=== PATIENT | female | born 1985 | race American Indian/Alaskan Native ===

== ENCOUNTER 2018-05-17 19:18 | Emergency (ER) | payer SELFPAY ==
[2018-05-17 19:18] VITALS: BMI 23.6
[2018-05-17 19:50] VITALS: O2SAT 100
[2018-05-17] MEDS ORDERED: Sodium Chloride 0.9% 1,000 ML IV STA (20:32)
[2018-05-17 21:08] LABS: VENOUS BLOOD GAS BASE EXCESS 2.8 mmol/L (0.0-2.0); VENOUS BLOOD GAS PO2 34 mm/Hg (30-55); VENOUS BLOOD PH 7.36 (7.32-7.43)
[2018-05-17 21:09] LABS: BASO # 0.01 K/mm3 (0.0-2.0); BASO % 0.3 % (0.0-3.0); EOS % 0.8 % (1.5-5.0); LYMPH # 0.7 (1.2-3.4); LYMPH % 19.1 % (22.0-35.0); MEAN CELL VOLUME 90.3 fl (80.0-105.0); MEAN CORPUSCULAR HEMOGLOBIN 29.2 pg (25.0-35.0); MEAN CORPUSCULAR HGB CONC 32.3 g/dl (31.0-37.0); MEAN PLATELET VOLUME 10.1 fl (7.0-11.0); MONO # 0.2 (0.1-0.6); MONO % 4.2 % (1.0-6.0); RBC 4.45 10^6/uL (3.5-6.1); WHITE BLOOD COUNT 3.8 10^3/uL (4.5-11.0)
--- NOTE | 2018-05-17 21:10 | ED PDOC ---
Arrival/HPI <Samy Sanchez - Last Filed: 05/17/18 22:02> - General Historian: Patient - History of Present Illness Narrative History of Present Illness (Text): 05/17/18 21:07 33-year-old female with no pmh, and to the emergency room complaining of vomiting, diarrhea, abdominal pain, fevers, chills and feeling lightheaded which started today. Patient states that yesterday she was already starting to feel weak and tired. She also adds that last night she [place] with her family however she is only 1 who is ill today. Of note, patient had a recent URI, however has no cough now. Otherwise patient reports no other sick contacts, no recent travel, no chest pain, no SOB, has no h/o abdominal surgeries. <Julia Lewis PA-C - Last Filed: 05/18/18 00:59> - General Chief Complaint: Flu-like Symptoms Time Seen by Provider: 05/17/18 19:39 Past Medical History - Infectious Disease Hx of Infectious Diseases: None - Tetanus Immunization Tetanus Immunization: Unknown - Past Medical History Past Medical History: No Previous - Cardiac Hx Cardiac Disorders: No - Pulmonary Hx Respiratory Disorders: Yes Hx Bronchitis: Yes - Neurological Hx Neurological Disorder: No - HEENT Hx HEENT Disorder: No - Renal Hx Renal Disorder: No - Endocrine/Metabolic Hx Endocrine Disorders: No - Hematological/Oncological Hx Blood Disorders: No - Integumentary Hx Dermatological Disorder: No - Musculoskeletal/Rheumatological Hx Musculoskeletal Disorders: No - Gastrointestinal Hx Gastrointestinal Disorders: No - Genitourinary/Gynecological Hx Genitourinary Disorders: No - Psychiatric Hx Psychophysiologic Disorder: No Hx Substance Use: No - Past Surgical History Past Surgical History: Non-Contributing - Surgical History Hx Eye Surgery: Yes Other/Comment: laser eye surgery - Anesthesia Hx Anesthesia Reactions: No Hx Malignant Hyperthermia: No - Suicidal Assessment Feels Threatened In Home Enviroment: No <Julia Lewis PA-C - Last Filed: 05/18/18 00:59> Family/Social History Family/Social History: No Known Family HX Smoking Status: Light Smoker < 10 Cigarettes Daily Hx Alcohol Use: No Hx Substance Use: No Hx Substance Use Treatment: No <Julia Lewis PA-C - Last Filed: 05/18/18 00:59> Allergies/Home Meds <Samy Sanchez - Last Filed: 05/17/18 22:02> <Julia Lewis PA-C - Last Filed: 05/18/18 00:59> Allergies/Adverse Reactions: Allergies No Known Allergies Allergy (Verified 05/17/18 19:46) Review of Systems - Review of Systems Constitutional: Fatigue, Fevers ENT: Rhinorrhea (+h/o recent URI). absent: Sore Throat, Sinus Congestion Respiratory: Cough (+h/o recent URI). absent: SOB Cardiovascular: absent: Chest Pain, Palpitations Gastrointestinal: Abdominal Pain, Diarrhea, Nausea, Vomiting Genitourinary Female: absent: Dysuria, Frequency, Hematuria Musculoskeletal: absent: Arthralgias, Back Pain, Neck Pain Skin: absent: Rash, Pruritis, Skin Lesions Neurological: absent: Headache, Dizziness <Julia Lewis PA-C - Last Filed: 05/18/18 00:59> Physical Exam Vital Signs Temp Pulse Resp BP Pulse Ox 05/17/18 21:18 81 18 131/84 100 05/17/18 20:38 101.3 F H 05/17/18 19:47 101.3 F H 103 H 17 138/90 100 <Samy Sanchez - Last Filed: 05/17/18 22:02> Vital Signs Temp Pulse Resp BP Pulse Ox 05/17/18 20:38 101.3 F H 05/17/18 19:47 101.3 F H 103 H 17 138/90 100 Temperature: Febrile Blood Pressure: Normal Pulse: Tachycardic Respiratory Rate: Normal Appearance: Positive for: Well-Appearing, Non-Toxic, Comfortable Pain Distress: Mild Mental Status: Positive for: Alert and Oriented X 3 - Systems Exam Head: Present: Atraumatic, Normocephalic Pupils: Present: PERRL Extroacular Muscles: Present: EOMI Conjunctiva: Present: Normal Ears: Present: Normal, NORMAL TM Mouth: Present: Dry Pharnyx: Present: ERYTHEMA. No: EXUDATE, TONSILS ENLARGED, Uvular Deviation, [place] Neck: Present: Normal Range of Motion. No: Meningeal Signs, Lymphadenopathy Respiratory/Chest: Present: Clear to Auscultation, Good Air Exchange. No: Respiratory Distress, Accessory Muscle Use Cardiovascular: Present: Regular Rate and Rhythm, Normal S1, S2. No: Murmurs Abdomen: Present: Tenderness (+moderate diffuse abdominal tenderness, greatest to the RLQ and LUQ ). No: Distention, Peritoneal Signs, Rebound, Guarding Back: Present: Normal Inspection. No: CVA Tenderness, Midline Tenderness Upper Extremity: Present: Normal Inspection. No: Cyanosis, Edema Lower Extremity: Present: Normal Inspection. No: Edema Neurological: Present: GCS=15, CN II-XII Intact, Speech Normal, Motor Func Grossly Intact, Normal Sensory Function Skin: Present: Warm, Dry, Normal Color. No: Rashes Psychiatric: Present: Alert, Oriented x 3, Normal Insight, Normal Concentration <Julia Lewis PA-C - Last Filed: 05/18/18 00:59> Medical Decision Making - Lab Interpretations Lab Results: pO2 34 mm/Hg (30-55) 05/17/18 20:55 VBG pH 7.36 (7.32-7.43) 05/17/18 20:55 VBG pCO2 52.0 (40-60) 05/17/18 20:55 VBG HCO3 29.4 mmol/l (21-28) H 05/17/18 20:55 VBG Total CO2 31.0 mmol.L (22-28) H 05/17/18 20:55 VBG O2 Sat (Calc) 72.3 % (40-65) H 05/17/18 20:55 VBG Base Excess 2.8 mmol/L (0.0-2.0) H 05/17/18 20:55 VBG Potassium 3.7 mmol/L (3.6-5.2) 05/17/18 20:55 Sodium 139.0 mmol/L (132-148) 05/17/18 20:55 Chloride 105.0 mmol/L (98-107) 05/17/18 20:55 Glucose 87 mg/dl (65-105) 05/17/18 20:55 Lactate 0.6 mmol/L (0.7-2.1) L 05/17/18 20:55 FiO2 21.0 % 05/17/18 20:55 Total Bilirubin 0.3 mg/dL (0.2-1.3) 05/17/18 20:55 AST 29 U/L (14-36) 05/17/18 20:55 ALT 18 U/L (7-56) 05/17/18 20:55 Alkaline Phosphatase 65 U/L (38-126) 05/17/18 20:55 Total Protein 7.5 g/dL (5.8-8.3) 05/17/18 20:55 Albumin 4.3 g/dL (3.0-4.8) 05/17/18 20:55 Globulin 3.2 gm/dL 05/17/18 20:55 Albumin/Globulin Ratio 1.3 (1.1-1.8) 05/17/18 20:55 Lipase 84 U/L (23-300) 05/17/18 20:55 Urine Color Yellow (YELLOW) 05/17/18 21:27 Urine Appearance Clear (CLEAR) 05/17/18 21:27 Urine pH 7.0 (4.7-8.0) 05/17/18 21:27 Ur Specific [place] 1.025 (1.005-1.035) 05/17/18 21:27 Urine Protein Trace mg/dL (<30 mg/dL) H 05/17/18 21:27 Urine Glucose (UA) Negative mg/dL (NEGATIVE) 05/17/18 21:27 Urine Ketones Negative mg/dL (NEGATIVE) 05/17/18 21:27 Urine Blood Negative (NEGATIVE) 05/17/18 21:27 Urine Nitrate Negative (NEGATIVE) 05/17/18 21:27 Urine Bilirubin Negative (NEGATIVE) 05/17/18 21:27 Urine Urobilinogen 0.2 E.U./dL (<1 E.U./dL) 05/17/18 21:27 Ur Leukocyte Esterase Negative [place]/uL (NEGATIVE) 05/17/18 21:27 Urine RBC 0 - 2 /hpf (0-2) 05/17/18 21:27 Urine WBC None /hpf (0-6) 05/17/18 21:27 Ur Epithelial Cells 0 - 2 /hpf (0-5) 05/17/18 21:27 Urine Other Mucus /hpf 05/17/18 21:27 - RAD Interpretation Radiology Orders: 05/17/18 20:32 CHEST PORTABLE [RAD] Stat - Medication Orders Current Medication Orders: Discontinued Medications Acetaminophen (Tylenol 325mg Tab) 975 mg PO STAT STA Stop: 05/17/18 20:05 Last Admin: 05/17/18 20:38 Dose: 975 mg MAR Pain/Vitals Document 05/17/18 20:38 KV (Rec: 05/17/18 20:39 KV [id number]) Vitals Temperature (97.6 F-99.6 F) 101.3 F Temperature Source Oral Famotidine (Pepcid) 20 mg IVP STAT STA Stop: 05/17/18 20:33 Last Admin: 05/17/18 21:00 Dose: 20 mg IVP Administration Document 05/17/18 21:00 KV (Rec: 05/17/18 21:05 KV [id number]) Charges for Administration # of IVP Administrations 1 Sodium Chloride (Sodium Chloride 0.9%) 1,000 mls @ 1,000 mls/hr IV .Q1H STA Stop: 05/17/18 21:31 Last Admin: 05/17/18 21:00 Dose: 1,000 mls/hr eMAR Start Stop Document 05/17/18 21:00 KV (Rec: 05/17/18 21:04 KV [id number]) Intravenous Solution Start Date 05/17/18 Start Time 21:00 Ketorolac Tromethamine (Toradol) 30 mg IVP STAT STA Stop: 05/17/18 20:33 Last Admin: 05/17/18 21:28 Dose: 30 mg MAR Pain Assessment Document 05/17/18 21:28 KV (Rec: 05/17/18 21:28 KV [id number]) Pain Reassessment Is this a pain reassessment? No IVP Administration Document 05/17/18 21:28 KV (Rec: 05/17/18 21:28 KV [id number]) Charges for Administration # of IVP Administrations 1 Ondansetron HCl (Zofran Inj) 4 mg IVP STAT STA Stop: 05/17/18 20:33 Last Admin: 05/17/18 21:00 Dose: 4 mg IVP Administration Document 05/17/18 21:00 KV (Rec: 05/17/18 21:05 KV [id number]) Charges for Administration # of IVP Administrations 1 Samy Armendariz - Last Filed: 05/17/18 22:02> ED Course and Treatment: 05/17/18 21:11 Plan : - IV - Labs - UA, urine cx - CXR - Tylenol / Pepcid / Zofran / Toradol - Reassess / disposition - Rapid flu / Rapid strep - VBG 05/17/18 22:22 CXR : NAD, as read by SHARLENE Rapid strep negative Rapid flu negative Urinalysis negative Labs reviewed and within normal limits, including normal WBC and normal lactate. On reevaluation, patient reports improvement of symptoms, denies any pain or nausea. On exam, patient remains awake alert and oriented 3 in no acute distress. T 99.7 P 87 R 16 BP 145/84 O2sat 100%RA. Abdomen soft and nontender, without guarding or rebound. Diagnostic results discussed with the patient in great detail. Diagnosis of gastroenteritis discussed with the patient. Advised to follow up with primary care physician or the clinic in 1-2 days without fail. Advised to take medication as prescribed. Return to the emergency room at any time for any new or worsening symptoms. Patient states she fully agrees with and understands discharge instructions. States that she agrees with the plan and disposition. Verbalized and repeated discharge instructions and plan. I have given the patient opportunity to ask any additional questions. - RAD Interpretation Radiology Orders: 05/17/18 20:32 CHEST PORTABLE [RAD] Stat - Medication Orders Current Medication Orders: Sodium Chloride (Sodium Chloride 0.9%) 1,000 mls @ 1,000 mls/hr IV .Q1H STA Stop: 05/17/18 21:31 Last Admin: 05/17/18 21:00 Dose: 1,000 mls/hr eMAR Start Stop Document 05/17/18 21:00 KV (Rec: 05/17/18 21:04 KV [id number]) Intravenous Solution Start Date 05/17/18 Start Time 21:00 Discontinued Medications Acetaminophen (Tylenol 325mg Tab) 975 mg PO STAT STA Stop: 05/17/18 20:05 Last Admin: 05/17/18 20:38 Dose: 975 mg MAR Pain/Vitals Document 05/17/18 20:38 KV (Rec: 05/17/18 20:39 KV [id number]) Vitals Temperature (97.6 F-99.6 F) 101.3 F Temperature Source Oral Famotidine (Pepcid) 20 mg IVP STAT STA Stop: 05/17/18 20:33 Last Admin: 05/17/18 21:00 Dose: 20 mg IVP Administration Document 05/17/18 21:00 KV (Rec: 05/17/18 21:05 KV [facility]) Charges for Administration # of IVP Administrations 1 Ketorolac Tromethamine (Toradol) 30 mg IVP STAT STA Stop: 05/17/18 20:33 Ondansetron HCl (Zofran Inj) 4 mg IVP STAT STA Stop: 05/17/18 20:33 Last Admin: 05/17/18 21:00 Dose: 4 mg IVP Administration Document 05/17/18 21:00 KV (Rec: 05/17/18 21:05 KV [facility]) Charges for Administration # of IVP Administrations 1 <Julia Lewis PA-C - Last Filed: 05/18/18 00:59> - PA / COURT ASSISTANT / Resident Statement RUTH has reviewed & agrees with the documentation as recorded. <Samy Sanchez - Last Filed: 05/17/18 22:02> - PA / COURT ASSISTANT / Resident Statement RUTH has reviewed & agrees with the documentation as recorded. <Julia Lewis PA-C - Last Filed: 05/18/18 00:59> Disposition/Present on Arrival <Samy Sanchez - Last Filed: 05/17/18 22:02> - Present on Arrival Any Indicators Present on Arrival: No History of DVT/PE: No History of Uncontrolled Diabetes: No Urinary Catheter: No History of Decub. Ulcer: No History Surgical Site Infection Following: None - Disposition Have Diagnosis and Disposition been Completed?: Yes Disposition Time: 22:30 Patient Plan: Discharge <Julia Lewis PA-C - Last Filed: 05/18/18 00:59> - Disposition Diagnosis: Fever Disposition: HOME/ ROUTINE Condition: STABLE Discharge Instructions (ExitCare): Viral Gastroenteritis, Adult (DC), Fever, Adult (DC) Additional Instructions: Thank you for letting us take care of you today. You were treated for fever, gastroenteritis. The emergency medical care you received today was directed at your acute symptoms. If you were prescribed any medication, please fill it and take as directed. It may take several days for your symptoms to resolve. Return to the Emergency Department if your symptoms worsen, do not improve, or if you have any other problems. Please contact your doctor in 2 days for re-evaluation and follow up / or call one of the physicians/clinics you have been referred to that are listed on the Patient Visit Information form that is included in your discharge packet. Bring any paperwork you were given at discharge with you along with any medications you are taking to your follow up visit. Our treatment cannot replace ongoing medical care by a primary care provider (PCP) outside of the emergency department. Thank you for allowing the [facility] team to be part of your care today. If you had an X-Ray : A Radiologist will review the ED reading if any change in treatment is needed we will contact you. Prescriptions: Dicyclomine [Bentyl] 20 mg PO QID PRN #20 tab PRN Reason: Other Ondansetron ODT [Zofran ODT] 4 mg PO DAILY PRN #20 odt PRN Reason: Nausea/Vomiting Referrals: [facility] [place] [facility] [place] - Follow up with primary FAMILY PROVIDER,NO [Primary Care Provider] - Follow up with primary Forms: Closely ([place]ian), WORK NOTE
[2018-05-17 21:16] LABS: ALB/GLOB RATIO 1.3 (1.1-1.8)
[2018-05-17 21:19] LABS: ALBUMIN 4.3 g/dL (3.0-4.8); ALT/SGPT 18 U/L (7-56); AST/SGOT 29 U/L (14-36); BLOOD UREA NITROGEN 10 mg/dL (7-21); GFR NON-AFRICAN AMERICAN > 60; LIPASE 84 U/L (23-300)
[2018-05-17 21:39] LABS: URINE BILIRUBIN NEGATIVE (NEGATIVE); URINE BLOOD NEGATIVE (NEGATIVE); URINE GLUCOSE (UA) NEGATIVE (NEGATIVE); URINE LEUKOCYTE ESTERASE NEGATIVE Leu/uL (NEGATIVE); URINE PROTEIN TRACE mg/dL (<30 mg/dL); URINE UROBILINOGEN 0.2 E.U./dL (<1 E.U./dL)
[2018-05-17 21:40] LABS: URINE APPEARANCE CLEAR (CLEAR); URINE COLOR YELLOW (YELLOW)
[2018-05-17 21:57] LABS: URINE EPITHELIAL CELLS 0 - 2 /hpf (0-5); URINE RBC 0 - 2 /hpf (0-2)
[2018-05-17 22:26] VITALS: BP 145/84; PULSE 87; RESP 16; TEMP 99.7
--- NOTE | 2018-05-18 09:03 | RAD ---
Date of service: 05/17/2018 HISTORY: fever COMPARISON: 11/18/2014 FINDINGS: LUNGS: No active pulmonary disease. PLEURA: No significant pleural effusion identified, no pneumothorax apparent. CARDIOVASCULAR: No aortic atherosclerotic calcification present. Normal cardiac size. No pulmonary vascular congestion. OSSEOUS STRUCTURES: No significant abnormalities. VISUALIZED UPPER ABDOMEN: Normal. OTHER FINDINGS: None. IMPRESSION: No active disease.
== END 2018-05-17 22:48 | disposition home or self-care (01) ==
LOC: ED 19:18
DX: R50.9 Fever, unspecified (principal)
CPT/HCPCS: 71045; 80053; 81001; 81025; 82803; 83690; 83735; 85025; 87040; 87070; 87086; 87430; 87804; 96374; 96375; 99284; J1885; J2405; J7030

== ENCOUNTER 2018-08-01 22:54 | Emergency (ER) | payer MEDICAID, OTHER ==
[2018-08-01 23:25] VITALS: BMI 23.2
[2018-08-01 23:28] VITALS: TEMP 98
--- NOTE | 2018-08-01 23:43 | ED PDOC ---
Arrival/HPI <Samy Sanchez - Last Filed: 08/02/18 01:19> - General Historian: Patient - History of Present Illness Narrative History of Present Illness (Text): 08/01/18 23:39 CC: dizziness, lightheadedness HPI: 33 year old female w/no significant PMH comes to ED for evaluation of dizziness and lightheadedness. Patient states that it began today while she was showering. Patient admits this dizziness has occurred in the past. Patient states that she attributes it to if she does not eat or drink water for a prolonged period of time. Patient states when she feels this way she begins to eat food and drink then goes to lie down to prevent a headache. Patient states she was recently here for similar complaints but did not take the medicine the doctor prescribed. Denies fevers, chills, chest pain, sob, n/v, constipation or diarrhea, and dyusria. <Gustavo Morales - Last Filed: 08/02/18 01:39> - General Chief Complaint: Dizziness/Lightheaded Time Seen by Provider: 08/01/18 22:58 Past Medical History - Provider Review Nursing Documentation Reviewed: Yes - Infectious Disease Hx of Infectious Diseases: None - Tetanus Immunization Tetanus Immunization: Unknown - Past Medical History Past Medical History: No Previous - Cardiac Hx Cardiac Disorders: No - Pulmonary Hx Respiratory Disorders: Yes Hx Bronchitis: Yes - Neurological Hx Neurological Disorder: Yes Hx Dizziness: Yes - HEENT Hx HEENT Disorder: No - Renal Hx Renal Disorder: No - Endocrine/Metabolic Hx Endocrine Disorders: No - Hematological/Oncological Hx Blood Disorders: No - Integumentary Hx Dermatological Disorder: No - Musculoskeletal/Rheumatological Hx Musculoskeletal Disorders: No - Gastrointestinal Hx Gastrointestinal Disorders: No - Genitourinary/Gynecological Hx Genitourinary Disorders: No - Psychiatric Hx Psychophysiologic Disorder: No Hx Substance Use: No - Past Surgical History Past Surgical History: Non-Contributing - Surgical History Hx Eye Surgery: Yes Other/Comment: laser eye surgery - Anesthesia Hx Anesthesia: No Hx Anesthesia Reactions: No Hx Malignant Hyperthermia: No - Suicidal Assessment Feels Threatened In Home Enviroment: No <Gustavo Morales - Last Filed: 08/02/18 01:39> Family/Social History Family/Social History: Diabetes, Hypertension Smoking Status: Light Smoker < 10 Cigarettes Daily Hx Alcohol Use: Yes Frequency of alcohol use: Socially Hx Substance Use: No Hx Substance Use Treatment: No <Gustavo Morales - Last Filed: 08/02/18 01:39> Allergies/Home Meds <Samy Sanchez - Last Filed: 08/02/18 01:19> <Gustavo Morales - Last Filed: 08/02/18 01:39> Allergies/Adverse Reactions: Allergies No Known Allergies Allergy (Verified 08/01/18 23:25) Review of Systems - Review of Systems Constitutional: Normal. absent: Fatigue, Weight Change, Fevers Eyes: Normal. absent: Vision Changes ENT: Normal Respiratory: Normal. absent: SOB, Cough, Sputum, Wheezing Cardiovascular: Normal. absent: Chest Pain, Palpitations, Edema Gastrointestinal: Normal. absent: Abdominal Pain, Stool Changes, Constipation, Diarrhea, Nausea, Vomiting, Appetite Changes Genitourinary Female: Normal. absent: Dysuria, Frequency, Hematuria Musculoskeletal: Normal. absent: Arthralgias, Back Pain Skin: Normal. absent: Rash, Pruritis Neurological: Dizziness. absent: Normal, Headache, Focal Weakness, Disequilibrium Endocrine: Normal. absent: Diaphoresis, Polyuria, Polydipsia Psychiatric: Normal. absent: Anxiety, Depression <Gustavo Morales - Last Filed: 08/02/18 01:39> Physical Exam Vital Signs Temp Pulse Resp BP Pulse Ox 08/01/18 23:27 98.0 F 82 18 153/98 H 98 <Samy Sanchez - Last Filed: 08/02/18 01:19> Vital Signs Reviewed: Yes Vital Signs Temp Pulse Resp BP Pulse Ox 08/01/18 23:27 98.0 F 82 18 153/98 H 98 Temperature: Afebrile Blood Pressure: Normal Pulse: Regular Respiratory Rate: Normal Appearance: Positive for: Well-Appearing, Non-Toxic, Comfortable Pain Distress: None Mental Status: Positive for: Alert and Oriented X 3 - Systems Exam Head: Present: Atraumatic, Normocephalic. No: Tenderness Pupils: Present: PERRL Extroacular Muscles: Present: EOMI Conjunctiva: Present: Normal Mouth: Present: Moist Mucous Membranes Neck: Present: Normal Range of Motion. No: Meningeal Signs, Paraspinal Tenderness Respiratory/Chest: Present: Clear to Auscultation, Good Air Exchange. No: Respiratory Distress, Accessory Muscle Use Cardiovascular: Present: Regular Rate and Rhythm, Normal S1, S2. No: Murmurs, Tachycardic Abdomen: Present: Normal Bowel Sounds. No: Tenderness, Distention, Peritoneal Signs Upper Extremity: Present: Normal Inspection. No: Cyanosis, Edema Lower Extremity: Present: Normal Inspection. No: Edema Neurological: Present: GCS=15, CN II-XII Intact, Speech Normal Skin: Present: Warm, Dry, Normal Color. No: Rashes Psychiatric: Present: Alert, Oriented x 3, Normal Insight, Normal Concentration <Gustavo Morales - Last Filed: 08/02/18 01:39> Medical Decision Making - RAD Interpretation Radiology Orders: 08/01/18 23:38 HEAD W/O CONTRAST [CT] Stat - Medication Orders Current Medication Orders: Discontinued Medications Meclizine HCl (Antivert) 25 mg PO STAT STA Stop: 08/01/18 23:39 Last Admin: 08/01/18 23:52 Dose: 25 mg <Samy Sanchez - Last Filed: 08/02/18 01:19> ED Course and Treatment: 08/01/18 23:45 Impression 33 year old female w/no significant PMH comes to ED for evaluation of dizziness and lightheadedness. Plan -CBC -CMP -Antivert -CT head w/o contrast Prior Visits All prior documentation and lab work reviewed prior to evaluation Progress Notes Patient laying in bed comfortably with partner. Complains of dizziness and light sensitivity Will reassess after imaging and blood work for disposition EKG shows NSR w/ sinus arrythmia 08/02/18 01:30 Lab work all reviewed and WNL CT head came back negative for acute pathology Re-evaluation Time: 01:30 Reassessment Condition: Re-examined, Improving,but remains with symptoms - Lab Interpretations Lab Results: 08/01/18 23:52 08/01/18 23:52 Lab Results 08/01/18 23:52: Sodium 142, Potassium 3.9, Chloride 103, Carbon Dioxide 29, Anion Gap 13, BUN 12, Creatinine 0.7, Est GFR ( Amer) > 60, Est GFR (Non- Af Amer) > 60, Random Glucose 104, Calcium 9.1, Total Bilirubin 0.3, AST 25, ALT 28, Alkaline Phosphatase 51, Total Protein 7.0, Albumin 4.1, Globulin 2.9, Albumin/Globulin Ratio 1.4 08/01/18 23:52: WBC 6.3 D, RBC 4.08, Hgb 11.8 L, Hct 36.5, MCV 89.5, MCH 28.9, MCHC 32.3, RDW 13.1, Plt Count 280, MPV 9.9, Neut % (Auto) 61.1, Lymph % (Auto) 31.8, [place] % (Auto) 5.8, Eos % (Auto) 1.1 L, Baso % (Auto) 0.2, Lymph # (Auto) 2.0, [place] # (Auto) 0.4, Eos # (Auto) 0.1, Baso # (Auto) 0.01, Absolute Neuts (auto) 3.82 I have reviewed the lab results: Yes Interpretation: Abnormal lab values (anemia) - RAD Interpretation Radiology Orders: 08/01/18 23:38 HEAD W/O CONTRAST [CT] Stat - EKG Interpretation EKG Interpretation (Text): 08/01/18 23:51 EKG shows A fib w/ PVC or aberrantly conducted complexes Rate controlled at 79 Interpreted by ED Physician: Yes Type: 12 lead EKG - Medication Orders Current Medication Orders: Discontinued Medications Meclizine HCl (Antivert) 25 mg PO STAT STA Stop: 08/01/18 23:39 <Gustavo Morales - Last Filed: 08/02/18 01:39> - PA / MOLDER MACHINE / Resident Statement / has reviewed & agrees with the documentation as recorded. / has examined the patient and agrees with the treatment plan. - Scribe Statement The provider has reviewed the documentation as recorded by the Scribe Patient Seen With Resident: In agreement with resident note which contains more details about the patient. Patient was seen and evaluated with resident. Came up with plan and treatment together. <Samy Sanchez - Last Filed: 08/02/18 01:19> Disposition/Present on Arrival <Samy Sanchez - Last Filed: 08/02/18 01:19> - Present on Arrival Any Indicators Present on Arrival: No History of DVT/PE: No History of Uncontrolled Diabetes: No Urinary Catheter: No History of Decub. Ulcer: No History Surgical Site Infection Following: None - Disposition Have Diagnosis and Disposition been Completed?: Yes Disposition Time: 01:38 Patient Plan: Discharge <Gustavo Morales - Last Filed: 08/02/18 01:39> - Disposition Diagnosis: Dizziness, Lightheadedness Condition: FAIR Additional Instructions: 1. Please f/u with primary medical doctor within 7 days of discharge from hospital 2. Please f/u with neurologist, Dr. Cross, for continued care of dizziness 3. Please return to hospital if symptoms worsen or recur. Referrals: Orion Cross MD [Staff Provider] - Follow up with primary Forms: [place] ([place])
[2018-08-02 00:10] LABS: BASO # 0.01 K/mm3 (0.0-2.0); BASO % 0.2 % (0.0-3.0); EOS # 0.1 (0.0-0.7); EOS % 1.1 % (1.5-5.0); HEMOGLOBIN 11.8 g/dL (12.0-16.0); LYMPH % 31.8 % (22.0-35.0); MEAN CELL VOLUME 89.5 fl (80.0-105.0); MEAN CORPUSCULAR HEMOGLOBIN 28.9 pg (25.0-35.0); MEAN CORPUSCULAR HGB CONC 32.3 g/dl (31.0-37.0); MEAN PLATELET VOLUME 9.9 fl (7.0-11.0); MONO # 0.4 (0.1-0.6); MONO % 5.8 % (1.0-6.0); RBC 4.08 10^6/uL (3.5-6.1); RED CELL DISTRIBUTION WIDTH 13.1 % (11.5-14.5); WHITE BLOOD COUNT 6.3 10^3/uL (4.5-11.0)
[2018-08-02 00:13] LABS: ALB/GLOB RATIO 1.4 (1.1-1.8); ALBUMIN 4.1 g/dL (3.0-4.8); ALT/SGPT 28 U/L (7-56); AST/SGOT 25 U/L (14-36); BLOOD UREA NITROGEN 12 mg/dL (7-21); CALCIUM 9.1 mg/dL (8.4-10.5); GFR NON-AFRICAN AMERICAN > 60
[2018-08-02 01:06] VITALS: BP 136/89; PULSE 74; RESP 16; O2SAT 97
--- NOTE | 2018-08-02 09:23 | CT ---
Date of service: 08/02/2018 PROCEDURE: CT HEAD WITHOUT CONTRAST. HISTORY: dizziness, lightheadedness COMPARISON: None available. TECHNIQUE: Axial computed tomography images were obtained through the head/brain without intravenous contrast. Radiation dose: Total exam DLP = 903.33 mGy-cm. This CT exam was performed using one or more of the following dose reduction techniques: Automated exposure control, adjustment of the mA and/or kV according to patient size, and/or use of iterative reconstruction technique. FINDINGS: HEMORRHAGE: No intracranial hemorrhage. BRAIN: No mass effect or edema. No atrophy or chronic microvascular ischemic changes. VENTRICLES: Unremarkable. No hydrocephalus. CALVARIUM: Unremarkable. PARANASAL SINUSES: Unremarkable as visualized. No significant inflammatory changes. MASTOID AIR CELLS: Unremarkable as visualized. No inflammatory changes. OTHER FINDINGS: The report concurs with the preliminary [facility] report IMPRESSION: No acute intracranial findings
--- NOTE | 2018-08-02 11:38 | CARD ---
APPROVED REPORT Date of service: 08/01/2018 EKG Measurement Heart [id number] <Conclusion> Normal sinus rhythm with sinus arrhythmia Normal ECG
== END 2018-08-02 01:56 | disposition home or self-care (01) ==
LOC: ED 22:54
DX: R42 Dizziness and giddiness (principal); F17.210 Nicotine dependence, cigarettes, uncomplicated; Z83.3 Family history of diabetes mellitus; Z82.49 Family history of ischemic heart disease and other diseases of the circulatory system